=== PATIENT | male | born 1950 | race Caucasian/White ===

== ENCOUNTER 2023-08-21 05:12 | Emergency (ER) | payer OTHER, SELFPAY ==
[2023-08-21 05:19] VITALS: BP 125/61; PULSE 84; RESP 17; TEMP 36.2; O2SAT 96
[2023-08-21 05:26] VITALS: BP 125/61; PULSE 84; RESP 17; TEMP 36.2; O2SAT 97
--- NOTE | 2023-08-21 05:40 | ED.GENADULT ---
HPI - General Adult General Chief complaint: Extremity Injury, Lower Stated complaint: L foot injury Time Seen by Provider: 08/21/23 05:16 Source: patient Mode of arrival: ambulatory Limitations: no limitations History of Present Illness HPI narrative: 73-year-old here for left foot laceration. Happened in his kitchen today. Thinks he was stepped on some broken glass. [place] something sharp in his left foot. Immediately had a lot of bleeding that lasted about 10 minutes but he was able to stop it. Unknown last tetanus. Denies any complaints at this point. Is on Eliquis. Related Data Allergies Allergy/AdvReac Type Severity Reaction Status Date / Time No Known Allergies Allergy Verified 08/21/23 05:22 Review of Systems Review of Systems: All systems reviewed & are unremarkable except as noted in HPI and below Exam Narrative: Constitutional: Generally well appearing, no acute distress Head: Atraumatic, no deformities. Eyes: Pupils equal, round, and reactive to light. Neck: Supple, no tracheal deviation, no JVD. ENMT: Mucous membranes moist Cardiovascular: S1, S2 auscultated. No murmurs, rubs, or gallops. No S3/S4. Normal Distal pulses. No peripheral edema. Respiratory: Lung sounds equal. No wheezes, rales, or rhonchi. Gastrointestinal: Abdomen was soft, nondistended Musculoskeletal: Normal muscle tone and bulk. No obvious deformities over extremities. Skin: No rashes. Left foot shows 1 cm laceration, no missing tissue, closed, not bleeding over the plantar aspect of the midfoot. No discharge. No foreign body. Neurological: Strength 5/5 in extremities. Distal sensation intact. Mental Status: Awake, alert and oriented x3. Follows commands Course Vital Signs Vital signs: Vital Signs Temperature 36.2 C L 08/21/23 05:19 Pulse Rate 84 08/21/23 05:19 Respiratory Rate 17 08/21/23 05:19 Blood Pressure 125/61 08/21/23 05:19 Pulse Oximetry 96 08/21/23 05:19 Oxygen Delivery Room Air 08/21/23 05:19 Temperature 36.2 C L 08/21/23 05:26 Pulse Rate 84 08/21/23 05:26 Respiratory Rate 17 08/21/23 05:26 Blood Pressure 125/61 08/21/23 05:26 Pulse Oximetry 97 08/21/23 05:26 Oxygen Delivery Room Air 08/21/23 05:19 Procedures Laceration Laceration 1: Date: 08/21/23 Time: 05:43 Site: lower extremity ( Foot) Side (If applicable): left Size (cm): 1 Description: linear Depth: simple, single layer Pre-repair: wound explored and irrigated extensively ====== Skin Level ====== Skin layer closed with: dermabond and steri strips ====== Subcutaneous Layer ====== ====== Muscle Layer ====== ====== Tendon Layer ====== Medical Decision Making MDM Narrative Medical decision making narrative: 73-year-old with foot laceration. Stepped on the glass. On exam is well-appearing, 1 cm laceration plantar aspect left foot. No bleeding. Tetanus was updated. No foreign bodies noted. Closed with Steri-Strips and glue. Instructed to stay off his feet today to prevent it from rebleeding. Return immediately for any new bleeding. Pt feeling improved and would like to go home at this point. Return precautions were given to the patient include any new or worsening symptoms or development of and not limited to any chest pain, shortness of breath, lightheadedness, abdominal pain, fevers, chills. Patient understands and agrees. They are to follow-up with her PCP. All questions were answered. I reviewed the patient's vital signs, history, allergies, and labs and imaging workup. Vital Signs Vital Signs: Vital Signs Temperature 36.2 C L 08/21/23 05:19 Pulse Rate 84 08/21/23 05:19 Respiratory Rate 17 08/21/23 05:19 Blood Pressure 125/61 08/21/23 05:19 Pulse Oximetry 96 08/21/23 05:19 Oxygen Delivery Room Air 08/21/23 05:19 Temperature 36.2 C L 08/21/23 05:26 Pulse Rate 84 08/21/23 05:26 Re
[2023-08-21] MEDS: TETANUS,DIPHTHERIA,AC PERTUSSIS ADULT (0.5 ML) BOOSTRIX IM (05:44)
== END 2023-08-21 06:05 | disposition home or self-care (01) ==
PROVIDERS: Emergency Provider Emergency Medicine
DX: S91.312A Laceration without foreign body, left foot, initial encounter (principal); Z23 Encounter for immunization; W25.XXXA Contact with sharp glass, initial encounter
CPT/HCPCS: 12001; 90471; 90715; 99283